=== PATIENT | female | born 1975 | race Caucasian/White ===

== ENCOUNTER → 2018-10-25 11:15 | Outpatient (CLI) | payer OTHER, SELFPAY ==
[2018-10-25 10:19] VITALS: BMI 38.7
[2018-10-25 11:38] LABS: Absolute Lymphocyte Count 1.86 X10^3/ul (0.83-4.51); Absolute Neutrophil Count 4.2 X10^3/uL (2.0-7.7); Basophil# 0.04 X10^3/uL; Basophil% 0.6 % (0-1); Eosinophil# 0.08 X10^3/uL; Eosinophils% 1.2 % (0-5); Hematocrit 42.9 % (37-47); Hemoglobin 13.6 g/dl (12.0-15.0); Lymphocyte # 1.86 X10^3/ul (4.0); Mean Corp Hgb Conc 31.7 g/gl (32-36); Mean Corpuscular Hgb 29.6 pg (27.0-32.0); Mean Corpuscular Volume 93.3 fL (81-99); Monocyte# 0.66 X10^3/uL; Monocyte% 9.6 % (0-10); Neutrophil # 4.24 X10^3/uL (2.7-7.7); Neutrophil % 61.5 % (47-70); POSITIVE COUNT NO; POSITIVE DIFFERENTIAL NO; POSITIVE MORPHOLOGY NO; Platelet Count 370 K/mm3 (150-450); RBC Distribution Width CV 12.9 % (11.6-14.6); RBC Distribution Width SD 43.7 fl (35.1-43.9); White Blood Count 6.9 K/mm3 (4.4-11.0)
[2018-10-25 12:16] LABS: Thyroid Stim Hormone (TSH) 0.91 uIU/mL (0.358-3.74)
[2018-10-27 03:07] LABS: DHEA Sulfate 496.6 ug/dL (57.3-279.2)
[2018-10-27 09:33] LABS: Testosterone Free 6.3 pg/mL (0.0-4.2)
[2018-10-30 13:19] LABS: HPV APTIMA, High Risk Negative (Negative)
== END ==
PROVIDERS: Referring Provider Obstetrics & Gynecology; Visit Provider Obstetrics & Gynecology
DX: N93.9 Abnormal uterine and vaginal bleeding, unspecified (principal); L68.0 Hirsutism; N32.81 Overactive bladder
CPT/HCPCS: 36415; 82627; 84402; 84443; 85025; 87086; 87088; 87624; 88175; 82626; G0145

== ENCOUNTER → 2018-11-30 09:06 | Outpatient (CLI) | payer OTHER, SELFPAY ==
[2018-10-25 14:53] VITALS: BMI 38.7
--- NOTE | 2018-11-30 09:10 | BI_ITS ---
MAMMOGRAPHY - BILATERAL SCREENING REASON FOR EXAM: Female, 42 years old. Routine annual screening examination. PERTINENT HISTORY: Non-contributory. TECHNIQUE: Digital bilateral breast argelia (3D mammographic acquisition) in the CC and MLO projections. 2-D mediolateral oblique (MLO) and craniocaudad (CC) views of both breasts were obtained. CAD: Full Field Digital Mammography with Computer Added Detection was performed. COMPARISON: None. Baseline examination. FINDINGS: Breast Composition: There are scattered areas of fibroglandular density. There are no dominant masses or suspicious calcifications. No other significant abnormalities are identified. BI/SCREEN MAMM (CAD) W/ARGELIA BILAT IMPRESSION: Negative screening mammogram. Yearly followup mammogram recommended. (A) ASSESSMENT CATEGORY: BIRADS Category 1: Negative. A letter regarding these results will be sent to the patient by the facility within 30 days. Approximately 10% of breast cancers are not detected by mammography. A normal mammogram should not delay biopsy of a clinically suspicious abnormality. [id number] Electronically Signed: Yonatan Encsio MD at 10:19 EST , Service support ,
== END ==
PROVIDERS: Referring Provider Obstetrics & Gynecology; Visit Provider Obstetrics & Gynecology
DX: Z12.31 Encounter for screening mammogram for malignant neoplasm of breast (principal); N93.9 Abnormal uterine and vaginal bleeding, unspecified; L68.0 Hirsutism
CPT/HCPCS: 77063; 77067

== ENCOUNTER 2022-10-26 14:21 | Emergency (ER) | payer OTHER, SELFPAY ==
[2022-10-26 14:22] VITALS: BP 131/86; PULSE 86; RESP 16; TEMP 36.2; O2SAT 98; BMI 36.4
--- NOTE | 2022-10-26 14:48 | EKG12_ITS ---
Test Reason : CP Blood Pressure : / mmHG Vent. Rate : 082 BPM Atrial Rate : 082 BPM P-R Int : 126 ms QRS Dur : 080 ms QT Int : 358 ms P-R-T Axes : 033 051 029 degrees QTc Int : 418 ms Normal sinus rhythm Normal ECG Confirmed by WILNER KIM, BIANKA ([id number]), market editor PARVEENA CHAVARRIA ([id number]) on 10/28/2022 8:21:59 AM Referred By: INDER/JESSICA Confirmed By:BIANKA DARBY MD
--- NOTE | 2022-10-26 14:48 | EDS_ITS ---
HPI History of Present Illness Chief Complaint: Chest Pain Narrative Narrative: 46-year-old female, who denies significant past medical history, presents with chest tightness that is worse with deep inspiration since 10:00 this morning, almost 5 hours ago. She complains of a chest tightness from front to back. She also states that it feels as if her whole body is tingling, as if cold water is running through her veins. She denies any fevers or chills. No recent cough. No leg swelling. She denies any family history of early coronary artery disease less than age 55. No DVT or PE risk factors. She is currently finished her menses. She denies any exacerbating or alleviating factors. She states while this was happening at work, she became lightheaded and short of breath, and broke out into a cold sweat, but those symptoms have since resolved after she sat down for a minute or 2. She states that she messaged her , and they present today for an evaluation. [facility] Medical History Kidney stones Home Medications NK 10/26/22 [History Last Taken Unknown] Allergy/AdvReac Type Severity Reaction Status Date / Time No Known Allergies Allergy Verified 10/26/22 14:22 Family History Father COPD (chronic obstructive pulmonary disease) Social History Smoking Status: Never smoker alcohol intake: never substance use type: does not use caffeine: Yes what type of physical activity do you participate in: none seatbelt use: always do you feel safe at home: Yes additional social history: unrivalDoctor Of Radiology Patient works at [employer] ROS ED ROS Narrative Constitutional: No fever, no chills. HEENT: No sore throat. No neck pain. No loss of vision. No rhinorrhea. Cardiovascular: Positive chest tightness, front to back/chest pain. No palpitations. No pedal edema. Respiratory: No cough, no shortness of breath. Abdominal: No abdominal pain. No nausea. No vomiting. Genitourinary: No dysuria. No hematuria. Musculoskeletal: No myalgias. No arthralgias. Neurologic: No headaches. No dizziness. No lightheadedness. Tingling feeling throughout body. Skin: No rash. No change in color. Psychiatric: No depression. No anxiety. EXAM Physical Exam Const Vital Signs: 10/26/22 14:22 10/26/22 15:00 10/26/22 16:53 Temperature 97.2 F L Temperature Source Temporal Pulse Rate 86 81 Respiratory Rate 16 14 Blood Pressure 131/86 H 121/72 H Blood Pressure Mean 101 88 Pulse Ox 98 99 Oxygen Delivery Method Room Air Room Air Room Air 10/26/22 18:10 Temperature Temperature Source Pulse Rate 74 Respiratory Rate 16 Blood Pressure 129/79 H Blood Pressure Mean 95 Pulse Ox 100 Oxygen Delivery Method Room Air Heart Score History: Slightly/Non-Suspicious ECG: Normal Age: </= 45 years Risk Factors: No Risk Factors Score: 0 MDM MDM MDM Narrative Medical decision making narrative: Comprehensive work-up was pursued. In the differential diagnosis is acute coronary syndrome, pulmonary embolism, thyroid storm. I obtained and reviewed her laboratory work. CBC shows normal white count of 9.7, hemoglobin normal at 12.8, normal platelet count of 375. D-dimer is negative at less than 0.27. I am not concerned for pulmonary embolism. BMP shows normal sodium of 139, normal potassium of 3.6, magnesium is normal at 2.3. TSH normal at 1.95. Initial high-sensitivity troponin less than 3. I interpreted her chest x-ray and see no acute process. EKG was obtained which was interpreted by myself and demonstrates normal sinus rhythm at 82 bpm without ectopy or acute ST changes. No STEMI. Chest x-ray in 1 view interpreted by myself shows no pneumothorax or pneumonia. At this point in time, I am unsure as to the cause of her chest pain as her second troponin is 3 for a delta troponin of less than 7. I am unsure as to the feeling that she has tingling throughout her body. Regardless, I do feel she be discharged safely home to follow-up with a primary care provider. Return instructions to the emergency department were reviewed. Disposition is discharged home in stable condition. Lab Data Attestation: I reviewed the patient's lab results. Labs: Laboratory Results - last 24 hr 10/26/22 10/26/22 10/26/22 15:00 15:00 15:00 WBC 9.7 RBC 4.27 Hgb 12.8 Hct 40.3 MCV 94.4 MCH 30.0 MCHC 31.8 L RDW Std Deviation 43.4 RDW Coeff of Curt 12.5 Plt Count 375 MPV 8.6 Immature Gran % (Auto) 0.400 Neut % (Auto) 68.1 Lymph % (Auto) 23.6 Young % (Auto) 5.7 Eos % (Auto) 1.5 Baso % (Auto) 0.7 Absolute Neuts (auto) 6.6 Absolute Lymphs (auto) 2.28 Nucleated RBC % 0 D-Dimer Quant (PE/DVT) < 0.27 L Sodium 139 Potassium 3.6 Chloride 105 Carbon Dioxide 30.0 Anion Gap 4 L BUN 9 Creatinine 0.68 Estim Creat Clear Calc 94.01 Est GFR (MDRD) Af Amer 120 Est GFR (MDRD) Non-Af 99 BUN/Creatinine Ratio 13.2 Glucose 108 H Calcium 9.6 Magnesium 2.3 Troponin I High Sens < 3 L TSH 1.95 Serum , Qual 10/26/22 10/26/22 15:00 17:32 WBC RBC Hgb Hct MCV MCH MCHC RDW Std Deviation RDW Coeff of Curt Plt Count MPV Immature Gran % (Auto) Neut % (Auto) Lymph % (Auto) Young % (Auto) Eos % (Auto) Baso % (Auto) Absolute Neuts (auto) Absolute Lymphs (auto) Nucleated RBC % D-Dimer Quant (PE/DVT) Sodium Potassium Chloride Carbon Dioxide Anion Gap BUN Creatinine Estim Creat Clear Calc Est GFR (MDRD) Af Amer Est GFR (MDRD) Non-Af BUN/Creatinine Ratio Glucose Calcium Magnesium Troponin I High Sens 3 TSH Serum , Qual NEGATIVE Radiography Diagnostic Testing: Clinical Impression(s) from Imaging Studies Chest X-Ray 10/26/22 15:10 IMPRESSION: Normal x-ray examination of the chest. Electronically Signed: Yonatan Enciso MD at 15:26 EST , Discharge Plan Triage Chief Complaint: Chest Pain ED Provider: Jayy Richard Dx/Rx/DC Orders Clinical Impression: Chest pain, Chest tightness, Paresthesias Instructions: ED Chest Pain, Uncertain Cause, ED Pain, Acute, Uncertain Cause, ED Paraesthesias Prescriptions: No Action NK Primary Care Provider: Care Physician,No Primary Referrals: David Mehta MD [Med Staff - Geriatric Nurse Assistant] - As soon as possible Care Physician,No Primary [Primary Care Provider] - Disposition Disposition: Home, Self Care
[2022-10-26] MEDS: Aspirin 81 MG TAB.CHEW 324 MG PO (15:04)
--- NOTE | 2022-10-26 15:10 | RAD_ITS ---
STUDY: X-RAY CHEST REASON FOR EXAM: Female, 46 years old. Chest pain TECHNIQUE: Single AP portable view of the chest. COMPARISON: Comparison is made with prior study dated 11/26/2016. FINDINGS: EKG electrodes are seen. The lungs are clear and expanded. There is no demonstrated pleural abnormality. Normal size heart. Normal mediastinum and cami. Normal visualized pulmonary arteries. Normal visualized aortic arch and descending thoracic aorta. Normal visualized thoracic spine. Normal visualized ribs, clavicles, and shoulders. There is no demonstrated abnormality of the visualized soft tissue structures of the upper abdomen. RAD/Chest 1 View (Portable) IMPRESSION: Normal x-ray examination of the chest. Electronically Signed: Yonatan Enciso MD at 15:26 EST ,
[2022-10-26 15:19] LABS: Absolute Lymphocyte Count 2.28 X10^3/uL (0.83-4.51); Absolute Neutrophil Count 6.6 X10^3/uL (2.0-7.7); Basophil# 0.07 X10^3/uL; Basophil% 0.7 % (0-1); Eosinophil# 0.14 X10^3/uL; Eosinophils% 1.5 % (0-5); Hematocrit 40.3 % (37-47); Hemoglobin 12.8 g/dL (12.0-15.0); Lymphocyte # 2.28 X10^3/ul (0.83-4.51); Lymphocyte % 23.6 % (19-41); Mean Corp Hgb Conc 31.8 g/dL (32-36); Mean Corpuscular Volume 94.4 fL (81-99); Mean Platelet Vol. 8.6 fl (6.2-12.0); Monocyte# 0.55 X10^3/uL; Monocyte% 5.7 % (0-10); NRBC Flagged by Analyzer 0 % (0-5); Neutrophil # 6.57 X10^3/uL (2.7-7.7); Neutrophil % 68.1 % (47-70); Platelet Count 375 K/mm3 (150-450); RBC Distribution Width CV 12.5 % (11.6-14.6); RBC Distribution Width SD 43.4 fl (35.1-43.9); Red Blood Count 4.27 M/mm3 (4.2-5.4); White Blood Count 9.7 K/mm3 (4.4-11.0)
[2022-10-26 15:54] LABS: Anion Gap 4 (5-15); BUN 9 mg/dL (7-18); BUN/Creat Ratio 13.2 RATIO (10-20); Calcium,Total 9.6 mg/dL (8.5-10.1); Chloride 105 mmol/L (98-107); Creatinine, Serum 0.68 mg/dL (0.55-1.02); EST Glomerular Filtration Rate 99 mL/min (>60); Est Glom Filt Rate - Afr Amer 120 mL/min (>60); Estimated Creatinine Clearance 94.01 ml/min; Glucose 108 mg/dL (74-106); Magnesium 2.3 mg/dL (1.6-2.6); Potassium 3.6 mmol/L (3.5-5.1); Sodium Level 139 mmol/L (136-145); Thyroid Stim Hormone (TSH) 1.95 uIU/mL (0.358-3.74); Troponin-I HS (w/2H Reflex) < 3 pg/mL (3.0-54.0)
[2022-10-26 16:00] LABS: Internal QC Validated? YES +Cl - CLEAR BKGD; Pregnancy, Serum, hCG Quali. NEGATIVE Negative
[2022-10-26 16:05] LABS: D-Dimer Quantitative (DVT/PE) < 0.27 FEU/ug/m (0.27-0.49)
[2022-10-26 16:53] VITALS: BP 121/72; PULSE 81; RESP 14; O2SAT 99
[2022-10-26 17:04] LABS: Reflex Troponin-HS? (from REC) Y
[2022-10-26 18:10] VITALS: BP 129/79; PULSE 74; RESP 16; O2SAT 100
[2022-10-26 18:19] LABS: Troponin-I HS 3 pg/mL (3.0-54.0)
[2022-10-26 18:39] VITALS: BP 129/73; PULSE 64; RESP 15; O2SAT 96
== END 2022-10-26 18:40 | disposition home or self-care (01) ==
PROVIDERS: Emergency Provider Emergency Medicine; Visit Provider Emergency Medicine
DX: R07.89 Other chest pain (principal); R20.2 Paresthesia of skin; R06.02 Shortness of breath
CPT/HCPCS: 71045; 80048; 83735; 84443; 84484; 84703; 85025; 85379; 93005; 99284

== ENCOUNTER 2024-06-09 19:06 | Emergency (ER) | payer OTHER, SELFPAY ==
[2024-06-09 19:07] VITALS: BP 141/84; PULSE 85; RESP 16; TEMP 36.6; O2SAT 98; BMI 36.2
--- NOTE | 2024-06-09 19:25 | RAD_ITS ---
INDICATION: trauma EXAMINATION/TECHNIQUE: X-RAY - LEFT XR Foot Min 3 Views 3 VIEWS COMPARISON: FINDINGS: BONES: No fracture demonstrated. Calcaneal spurs at the plantar and posterior Achilles insertion sites. JOINTS: No dislocation. SOFT TISSUES: Unremarkable. RAD/Foot min 3 Views IMPRESSION: No evidence of fracture. Electronically Signed: Lilia Russell MD at 20:50 EDT ,
--- NOTE | 2024-06-09 19:27 | ED.VIS.FALL ---
HPI HPI - Fall History of Present Illness Chief Complaint: Fall Informant: patient and spouse/S.O. Narrative Narrative: 48-year-old female presenting to the emergency room following a fall. Patient states that she was stepping down off a curb and fell onto the asphalt. She notes bilateral knee abrasions abrasions to the right great toe. She notes most of her pain seems to be over the dorsum of the left foot. She denies any head or neck injury no back pain. 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 [employer] ED Constitutional Constitutional ED: Denies chills, fever(s) or weight loss Eyes Eyes: Denies change in vision or diplopia ENT ENT ED: Denies ear pain, rhinorrhea or sore throat Cardiovascular Cardiovascular: Denies chest pain, orthopnea, palpitations or racing heartbeat Respiratory/Chest Respiratory/Chest: Denies cough, dyspnea or orthopnea Gastrointestinal Gastrointestinal: Denies abdominal pain, diarrhea, nausea or vomiting Genitourinary Genitourinary ED: Denies dysuria, hematuria or urinary frequency Musculoskeletal Musculoskeletal: Reports other Details: See history of present illness ; Denies arthralgias or myalgias Integumentary Reports Abrasions; Denies abscess or rash Neurologic Neurologic: Denies headache(s) or weakness Psychiatric Psychiatric: Denies anxiety, depression, suicidal ideation or suicidal thoughts Endocrine Endocrinology: Denies polydipsia, polyphagia or polyuria Allergic/Immunologic Allergic/Immunologic ED: Denies mouth swelling, tongue swelling or urticaria EXAM Physical Exam Const Vital Signs: 06/09/24 19:07 06/09/24 19:44 Temperature 98 F Temperature Source Temporal Pulse Rate 85 Respiratory Rate 16 Respiratory Effort Normal Non-Labored Respiratory Depth Normal Respiratory Pattern Normal Blood Pressure 141/84 H Blood Pressure Mean 103 Pulse Ox 98 Oxygen Delivery Method Room Air Room Air Positive well nourished and well developed General Appearance ED: well developed and NAD HEENT Reports normocephalic, head/scalp atraumatic and moist mucous membranes Eyes PERRL and EOMs intact bilaterally Neck no lymphadenopathy, supple and no JVD Resp normal respiratory effort and clear to auscultation bilaterally Cardio regular rate, regular rhythm and no murmurs GI normal to inspection, nondistended, normoactive bowel sounds and non-tender Palpation: soft Back/Spine no CVA tenderness and normal ROM Extremity Extremity Narrative: There are bilateral infrapatellar knee abrasions. No palpable joint effusions. No patellar tenderness. No significant ligamentous laxity. There is abrasions to the right great toe. There is ecchymosis and swelling and tenderness over the dorsum of the left foot. General Extremety ED: Negative for edema General Extremity: Negative for edema Neuro oriented x3 and CN's II-XII intact bilaterally Sensorium / Orientation: alert Motor Exam: strength 5/5 throughout Psych mental status grossly normal Mood & Affect: Negative for depressed or tearful Skin no rashes or lesions noted MDM MDM MDM Narrative Medical decision making narrative: Differential diagnosis includes but not limited to fracture contusion abrasion sprain strain tendon injury. My independent interpretation of the bilateral knee films no acute fracture. My independent interpretation of the bilateral foot films is no acute fracture. Local wound care was given by nursing. Motrin for pain. Ernie wrap will be applied to the left foot crutches as needed local wound care discussed at home. Patient return if worsening or concerns History & Record Review Discussion w/independent historian: Patient and Significant other Radiography Diagnostic Testing: Clinical Impression(s) from Imaging Studies Foot X-Ray 06/09/24 19:25 IMPRESSION: No evidence of fracture. Electronically Signed: Lilia Russell MD at 20:50 EDT Reading Location ID and State: [facility] / [place] Tel , Service support , Knee X-Ray 06/09/24 19:55 IMPRESSION: No evidence of fracture. Electronically Signed: Lilia Russell MD at 20:49 EDT , Foot X-Ray 06/09/24 19:56 IMPRESSION: No evidence of fracture. Electronically Signed: Lilia Russell MD at 20:52 EDT , Knee X-Ray 06/09/24 20:00 IMPRESSION: No evidence of fracture. Electronically Signed: Lilia Russell MD at 20:48 EDT , Discharge Plan Triage Chief Complaint: Fall ED Provider: Malachi Chahal Dx/Rx/DC Orders Clinical Impression: Abrasion of both knees, Contusion of knee, Sprain of foot, left, Abrasion of toe, right Instructions: ED Contusion, Lower Extremity, ED Foot Sprain Prescriptions: No Action NK Primary Care Provider: Care Physician,No Primary Referrals: Care Physician,No Primary [Primary Care Provider] - Activity Restrictions/Additional Instructions: Crutches as needed until weightbearing. Ernie wrap as needed. Tylenol and/or Motrin for pain. Good local wound care with soapy water antibiotic ointment at least once a day. Print Language: Bulgarian Disposition Disposition: Home, Self Care
[2024-06-09] MEDS: Ibuprofen 600 MG Tablet PO (19:42)
--- NOTE | 2024-06-09 19:55 | RAD_ITS ---
INDICATION: TRAUMA EXAMINATION/TECHNIQUE: X-RAY - RIGHT XR Knee Complete 4 Views or More 4 VIEWS COMPARISON: FINDINGS: BONES: No fracture demonstrated. JOINTS: No dislocation. SOFT TISSUES: Unremarkable. RAD/Knee 4 or More Views IMPRESSION: No evidence of fracture. Electronically Signed: Lilia Russell MD at 20:49 EDT ,
--- NOTE | 2024-06-09 19:56 | RAD_ITS ---
INDICATION: TRAUMA EXAMINATION/TECHNIQUE: X-RAY - RIGHT XR Foot Min 3 Views 3 VIEWS COMPARISON: FINDINGS: BONES: No fracture demonstrated. Calcaneal spurs at the plantar and posterior Achilles insertion sites. JOINTS: No dislocation. SOFT TISSUES: Unremarkable. RAD/Foot min 3 Views IMPRESSION: No evidence of fracture. Electronically Signed: Lilia Russell MD at 20:52 EDT ,
--- NOTE | 2024-06-09 20:00 | RAD_ITS ---
INDICATION: injury EXAMINATION/TECHNIQUE: X-RAY - LEFT XR Knee Complete 4 Views or More 4 VIEWS COMPARISON: FINDINGS: BONES: No fracture demonstrated. JOINTS: No dislocation. SOFT TISSUES: Unremarkable. RAD/Knee 4 or More Views IMPRESSION: No evidence of fracture. Electronically Signed: Lilia Russell MD at 20:48 EDT ,
[2024-06-09 21:29] VITALS: BP 133/84; PULSE 86; RESP 16; TEMP 36.6; O2SAT 99
== END 2024-06-09 21:30 | disposition home or self-care (01) ==
PROVIDERS: Emergency Provider Emergency Medicine; Visit Provider Emergency Medicine
DX: S80.211A Abrasion, right knee, initial encounter (principal); S80.212A Abrasion, left knee, initial encounter; W10.1XXA Fall (on)(from) sidewalk curb, initial encounter; S80.00XA Contusion of unspecified knee, initial encounter; S93.602A Unspecified sprain of left foot, initial encounter; S90.411A Abrasion, right great toe, initial encounter
CPT/HCPCS: 73564; 73630; 99282

== ENCOUNTER 2024-08-03 16:26 | Emergency (ER) | payer OTHER, SELFPAY ==
[2024-08-03 16:27] VITALS: BP 142/92; PULSE 102; RESP 18; TEMP 37.1; O2SAT 100; BMI 36.6
[2024-08-03 16:44] LABS: Red Blood Cells-Urine 0 SEEN /hpf (0-5); White Blood Cells 0 SEEN /hpf (0-5)
[2024-08-03 16:47] LABS: Color, Urine Yellow (Yellow); Glucose, Dipstick Normal (Normal); Ketone-Dipstick 5 mg/dl (Negative); Leukocyte Esterase-Dipstick Negative /ul (Negative); Nitrite-Dipstick Negative (Negative); Occult Blood-Urine Negative /ul (Negative); Protein-Dipstick 15 mg/dl (Negative); Urine Bilirubin Dipstick Negative (Negative); Urine Clarity Clear (Clear); Urine Urobilinogen Normal (Normal)
[2024-08-03 16:54] LABS: Bacteria 1+ /hpf (None Seen); Mucous, Urine 3+ /hpf (<or=2+); Squamous Epithelial Cells - UA 0-5 SEEN /hpf (5-10)
[2024-08-03 16:56] LABS: Hyaline Cast 0-5 SEEN /lpf (0-5)
[2024-08-03 16:58] LABS: Absolute Lymphocyte Count 2.17 X10^3/uL (0.83-4.51); Absolute Neutrophil Count 6.6 X10^3/uL (2.0-7.7); Basophil# 0.05 X10^3/uL; Basophil% 0.5 % (0-1); Eosinophil# 0.06 X10^3/uL; Eosinophils% 0.6 % (0-5); Hematocrit 41.5 % (37-47); Hemoglobin 13.5 g/dL (12.0-15.0); Lymphocyte # 2.17 X10^3/ul (0.83-4.51); Lymphocyte % 22.7 % (19-41); Mean Corp Hgb Conc 32.5 g/dL (32-36); Mean Corpuscular Hgb 30.3 pg (27.0-32.0); Mean Corpuscular Volume 93.3 fL (81-99); Mean Platelet Vol. 8.5 fl (6.2-12.0); Monocyte# 0.68 X10^3/uL; Monocyte% 7.1 % (0-10); NRBC Flagged by Analyzer 0 % (0-5); Neutrophil # 6.57 X10^3/uL (2.7-7.7); Neutrophil % 68.7 % (47-70); Platelet Count 428 K/mm3 (150-450); RBC Distribution Width CV 12.7 % (11.6-14.6); RBC Distribution Width SD 43.6 fl (35.1-43.9); Red Blood Count 4.45 M/mm3 (4.2-5.4); White Blood Count 9.6 K/mm3 (4.4-11.0)
[2024-08-03 17:12] LABS: Anion Gap 3 (5-15); BUN 10 mg/dL (7-18); BUN/Creat Ratio 12.8 RATIO (10-20); Calcium,Total 9.1 mg/dL (8.5-10.1); Chloride 107 mmol/L (98-107); Creatinine, Serum 0.78 mg/dL (0.55-1.02); EST Glomerular Filtration Rate 84 mL/min (>60); Est Glom Filt Rate - Afr Amer 102 mL/min (>60); Glucose 95 mg/dL (74-106); Potassium 3.8 mmol/L (3.5-5.1); Sodium Level 136 mmol/L (136-145)
[2024-08-03 17:27] LABS: Internal QC Validated? YES +Cl - CLEAR BKGD; Pregnancy, Serum, hCG Quali. NEGATIVE Negative; Record Kit Lot#, Serum Preg. 869294
[2024-08-03 18:27] VITALS: BP 127/84; PULSE 94; RESP 24; O2SAT 100
--- NOTE | 2024-08-03 19:00 | CT_ITS ---
EXAM: CT ABDOMEN AND PELVIS WITHOUT INTRAVENOUS CONTRAST CLINICAL INDICATION: flank pain TECHNIQUE: Helically acquired images were obtained of the abdomen and pelvis without intravenous contrast. This CT exam was performed using one or more of the following dose reduction techniques: automated exposure control, adjustment of the mA and/or kV according to patient size, and/or use of iterative reconstruction technique. RADIATION DOSE: CTDIvol = 22.25 mGy, DLP = 1117.39 mGy-cm. COMPARISON: No relevant prior studies available. FINDINGS: LOWER THORAX: Unremarkable. Lung bases are clear. No cardiomegaly. No significant pericardial effusion. ABDOMEN: LIVER: Unremarkable. Homogeneous. GALLBLADDER AND BILE DUCTS: Unremarkable. No calcified gallstones. No gallbladder distention or wall edema. No intra- or extrahepatic biliary ductal dilation. PANCREAS: Unremarkable. No focal cystic mass. SPLEEN: Multiple tiny calcified granulomas in the spleen: Mild vacuum disc at L4-5. Peripherally calcified right posterior lateral disc protrusion narrowing the right L5-S1 neural foramen. Possibly small dominant follicle right ovary not well seen. ADRENALS: Unremarkable. No nodules. KIDNEYS AND URETERS: Unremarkable. Normal renal size and position. No hydronephrosis. STOMACH AND BOWEL: Tiny nonobstructing stone in each kidney, best seen on coronal images. Minimal sigmoid diverticulosis, no evidence of acute diverticulitis. PELVIS: APPENDIX: Normal small appendix seen on sagittal images 51 through 58. BLADDER: Unremarkable. REPRODUCTIVE: Unremarkable as visualized. No mass. ABDOMEN and PELVIS: INTRAPERITONEAL SPACE: Unremarkable. No ascites or other fluid collection. No free air. BONES/JOINTS: Unremarkable. No suspicious lytic or blastic abnormality. SOFT TISSUES: Unremarkable. No discrete abdominal or pelvic wall hernia. VASCULATURE: Multiple phleboliths in the pelvis. Abdominal aorta is non-dilated. LYMPH NODES: Unremarkable. No enlarged lymph nodes. CT/Abdomen/Pelvis without Cont IMPRESSION: 1. Bilateral nephrolithiasis, tiny barely discernible intrarenal stone in each kidney. No vesta hydronephrosis or ureter stone. 2. Several phleboliths in the pelvis, especially near the distal left ureter and UVJ, not convincing for urinary tract stone but the small and tortuous distal ureter is difficult to follow. 3. Minimal sigmoid diverticulosis. 4. Degenerative spine changes. Electronically Signed: Tala Ng MD at 20:48 EDT ,
--- NOTE | 2024-08-03 19:02 | ED.VIS.FEGU ---
HPI HPI - Female History of Present Illness Chief Complaint: Flank Pain Informant: patient and spouse/S.O. Narrative Narrative: Bilateral flank pain right greater than left over 2 days. Urine frequency. No fevers or chills. Today while at work more unbearable. Went to urgent care evaluate sent here due to history of kidney stones over 30 years ago. No pain that radiates into her abdomen. No nausea or vomiting. Denies history of gastric ulcers or kidney injury. Prior similar symptoms: No PFSH PFSH Medical History Kidney stones Home Medications ?Medication ?Instructions ?Recorded ?Last Taken ?Type ibuprofen 600 mg tablet 600 mg PO Q6H PRN PRN pain #20 08/03/24 Unknown Rx TABLETS Allergy/AdvReac Type Severity Reaction Status Date / Time No Known Allergies Allergy Verified 08/03/24 16:27 Family History Father COPD (chronic obstructive pulmonary disease) Social History Smoking Status: Never smoker alcohol intake: never substance use type: does not use caffeine: Yes what type of physical activity do you participate in: none seatbelt use: always do you feel safe at home: Yes additional social history: [employer]- [employer] Patient works at [employer] [facility] ED Constitutional Constitutional ED: Denies chills, fever(s) or sweats Eyes Eyes: Denies change in vision ENT ENT ED: Denies dysphagia or sore throat Cardiovascular Cardiovascular: Denies chest pain, leg edema, palpitations or racing heartbeat Respiratory/Chest Respiratory/Chest: Denies cough, dyspnea or dyspnea on exertion Gastrointestinal Gastrointestinal: Denies abdominal pain, diarrhea, nausea or vomiting Genitourinary Genitourinary ED: Reports urinary frequency; Denies dysuria or hematuria Musculoskeletal Musculoskeletal: Reports back pain; Denies extremity pain or neck pain Integumentary Denies rash or wounds Neurologic Neurologic: Denies headache(s), paresthesias or weakness EXAM Physical Exam Const Vital Signs: 08/03/24 16:27 08/03/24 18:27 08/03/24 20:00 Temperature 98.8 F Temperature Source Oral Pulse Rate 102 H 94 62 Respiratory Rate 18 24 H 16 Blood Pressure 142/92 H 127/84 H Blood Pressure Mean 108 98 Pulse Ox 100 100 93 Oxygen Delivery Method Room Air Room Air 08/03/24 20:52 08/03/24 21:29 Temperature 98 F Temperature Source Pulse Rate 64 72 Respiratory Rate 20 H 18 Blood Pressure 121/73 H 123/71 H Blood Pressure Mean 89 88 Pulse Ox 95 99 Oxygen Delivery Method Room Air Positive well nourished and well developed General Appearance ED: well developed and NAD HEENT Reports moist mucous membranes normocephalic and atraumatic Eyes EOMs intact bilaterally and conjunctivae normal General Eye ED: Yes normal appearance of both eyes Neck no lymphadenopathy and supple General: Negative for tenderness Chest Wall Chest: Negative for tenderness Resp normal respiratory effort and normal air movement Effort and Inspection: symmetric chest movement; Negative for respiratory distress Cardio regular rate, regular rhythm and no murmurs Peripheral Pulses: pulses 2+ throughout GI normal to inspection, nondistended, normoactive bowel sounds and non-tender Palpation: Negative for guarding or rebound tenderness present Back/Spine no thoracic nor lumbar tenderness Back/Spine Narrative: Tender right CVA no rash no ecchymosis. Extremity normal to inspection General Extremety ED: Negative for edema or tenderness General Extremity: Negative for edema Neuro oriented x3 and no sensory deficits noted Sensorium / Orientation: awake and alert Skin no rashes or lesions noted and no wounds MDM MDM MDM Narrative Medical decision making narrative: Interventions / MDM: Differential diagnosis: Flank pain uncertain etiology, nephrolithiasis Diagnosis considered but do not suspect: Obstructive uropathy however CT negative. Pyelonephritis however urine negative. My EKG interpretation: N/A Imaging independently reviewed and interpreted by myself: CT abdomen pelvis without contrast: Tiny nephrolithiasis nonobstructing bilaterally. Also read by radiology. External documents reviewed: N/A Test considered but not ordered:N/A ED course: Patient's workup started in triage due to busy department. On my evaluation she declines any pain medicines. Labs white count 9.6 hemoglobin 13.5. Creatinine 0.78. Urine 1+ bacteria however negative nitrites leukocytes and WBCs. Urine culture sent. With progressive pain, will order flank CT for further evaluation. 2044: CT scan on my review shows no acute process pending final read at this time. On reevaluation update the patient she is having some discomfort. She agrees to Toradol at this time. Final read tiny nonobstructing nephrolithiasis. Discussed with patient monitoring for rash to could be shingles. Patient more controlled with Toradol. Prescription for Motrin to continue. Outpatient follow-up with her doctor. All questions were answered. Re-evaluation: stable Disposition discussed with patient/family/significant other: Patient significant other Case discussed with consulting clinician: N/A This note was generated with [employer] dictation software. It may contain incorrect words, spelling, and punctuation that were not noted in checking the note before signing. Lab Data Attestation: I reviewed the patient's lab results. Labs: Laboratory Results - last 24 hr 08/03/24 08/03/24 16:40 16:51 WBC 9.6 RBC 4.45 Hgb 13.5 Hct 41.5 MCV 93.3 MCH 30.3 MCHC 32.5 RDW Std Deviation 43.6 RDW Coeff of Curt 12.7 Plt Count 428 MPV 8.5 Immature Gran % (Auto) 0.400 Neut % (Auto) 68.7 Lymph % (Auto) 22.7 Casey % (Auto) 7.1 Eos % (Auto) 0.6 Baso % (Auto) 0.5 Absolute Neuts (auto) 6.6 Absolute Lymphs (auto) 2.17 Nucleated RBC % 0 Sodium 136 Potassium 3.8 Chloride 107 Carbon Dioxide 27.0 Anion Gap 3 L BUN 10 Creatinine 0.78 Estim Creat Clear Calc 104.40 Est GFR (MDRD) Af Amer 102 Est GFR (MDRD) Non-Af 84 BUN/Creatinine Ratio 12.8 Glucose 95 Calcium 9.1 Serum , Qual NEGATIVE Urine Color Yellow Urine Clarity Clear Urine pH 6.0 Ur Specific [place] 1.020 Urine Protein 15 H Urine Glucose (UA) Normal Urine Ketones 5 H Urine Occult Blood Negative Urine Nitrite Negative Urine Bilirubin Negative Urine Urobilinogen Normal Ur Leukocyte Esterase Negative Urine RBC 0 SEEN Urine WBC 0 SEEN Ur Squamous Epith Cells 0-5 SEEN Urine Bacteria 1+ Hyaline Casts 0-5 SEEN Urine Mucus 3+ Radiography Diagnostic Testing: Clinical Impression(s) from Imaging Studies Abdomen/Pelvis CT 08/03/24 19:00 IMPRESSION: 1. Bilateral nephrolithiasis, tiny barely discernible intrarenal stone in each kidney. No vesta hydronephrosis or ureter stone. 2. Several phleboliths in the pelvis, especially near the distal left ureter and UVJ, not convincing for urinary tract stone but the small and tortuous distal ureter is difficult to follow. 3. Minimal sigmoid diverticulosis. 4. Degenerative spine changes. Electronically Signed: Tala Ng MD at 20:48 EDT , Discharge Plan Triage Chief Complaint: Flank Pain ED Provider: Jarred Hernandes Dx/Rx/DC Orders Clinical Impression: Acute flank pain, Urine frequency, Bilateral nephrolithiasis Instructions: ED Flank Pain, Uncertain Cause Prescriptions: New ibuprofen 600 mg tablet 600 mg PO Q6H PRN PRN (Reason: pain) Qty: 20 0RF Primary Care Provider: Care Physician,No Primary Referrals: Shadi Sebastian MD [Med Staff - Active Staff] - 1 Week Care Physician,No Primary [Primary Care Provider] - Activity Restrictions/Additional Instructions: CT scan nonobstructing tiny stone in each kidney. This is not causing your pain. Urine 1+ bacteria urine culture sent. You will be contacted if culture is positive. Watch and monitor for rash that could break out secondary to shingles. This occurs he may call For treatment or return to ED for reevaluation. Print Language: Arabic Disposition Disposition: Home, Self Care Discharge Date/Time: 08/03/24 21:30
[2024-08-03 20:00] VITALS: PULSE 62; RESP 16; O2SAT 93
[2024-08-03] MEDS: Ketorolac 15 MG/ML Vial IV (20:49)
[2024-08-03 20:52] VITALS: BP 121/73; PULSE 64; RESP 20; O2SAT 95
[2024-08-03 21:29] VITALS: BP 123/71; PULSE 72; RESP 18; TEMP 36.6; O2SAT 99
== END 2024-08-03 21:30 | disposition home or self-care (01) ==
PROVIDERS: Emergency Provider Emergency Medicine; Visit Provider Emergency Medicine
DX: R10.9 Unspecified abdominal pain (principal); N20.0 Calculus of kidney; R35.0 Frequency of micturition
CPT/HCPCS: 74176; 80048; 81001; 84703; 85025; 87086; 96374; 99283; A4216